=== PATIENT | male | born 1960 | race Caucasian/White ===

== ENCOUNTER → 2021-01-16 | Outpatient (CLI) | payer OTHER | LOC: M.LAB 15:24 | PROVIDERS: ATTEND Surgery | DX: Z01.812 Encounter for preprocedural laboratory examination (principal); Z20.822 Contact with and (suspected) exposure to COVID-19 ==

== ENCOUNTER 2021-08-14 14:04 | Emergency (ER) | payer OTHER ==
[~2021-08-14] VITALS: Ht 170.2 cm; Wt 61.2 kg
[2021-08-14] MEDS ORDERED: PRILOSEC OTC20 MG PO (14:23)
[2021-08-14] MEDS ORDERED: PROSCAR 5MG TABL5 M1 PO (14:23)
[2021-08-14 15:28] VITALS: BP 146/93
== END 2021-08-14 15:29 | disposition home or self-care (01) ==
LOC: M.ERS 14:04
DX: K40.91 Unilateral inguinal hernia, without obstruction or gangrene, recurrent (principal); Z98.890 Other specified postprocedural states; Z79.899 Other long term (current) drug therapy